=== PATIENT | male | born 1985 | race Caucasian/White ===

== ENCOUNTER → 2021-01-29 | Outpatient (CLI) | payer OTHER | LOC: RAD 16:10 | PROVIDERS: ATTEND Family Medicine | DX: S62.626A Displaced fracture of middle phalanx of right little finger, initial encounter for closed fracture (principal); M79.89 Other specified soft tissue disorders; M25.512 Pain in left shoulder; M25.521 Pain in right elbow; G89.29 Other chronic pain; X58.XXXA Exposure to other specified factors, initial encounter; Y93.89 Activity, other specified; Y92.89 Other specified places as the place of occurrence of the external cause; Y99.8 Other external cause status ==